=== PATIENT | male | born 2005 | race African-American/Black ===

== ENCOUNTER 2023-01-05 22:08 | Emergency (ER) | payer BC, SELFPAY ==
[2023-01-05 22:11] VITALS: BP 121/84; PULSE 80; RESP 16; TEMP 36.3; O2SAT 98; BMI 42.8
--- NOTE | 2023-01-05 23:10 | CRLHL7_ITS ---
For Patients: As a result of the Century Cures Act, medical imaging exams and procedure reports are released immediately into your electronic medical record. You may view this report before your referring provider. If you have questions, please contact your health care provider. INDICATION: Abdominal pain, hematemesis. TECHNIQUE: CT abdomen and pelvis acquired with 143 cc Isovue 370 IV contrast. COMPARISON: 02/03/2022. FINDINGS: Lower chest: Unremarkable. Liver: Unremarkable. Normal in size and attenuation. No suspicious masses. Gallbladder and bile ducts: Unremarkable. No stones or inflammation. No biliary ductal dilatation. Spleen: Unremarkable. Normal in size. No masses. Adrenal glands: Unremarkable. No nodules. Pancreas: Unremarkable. No mass or inflammation. Kidneys: Unremarkable. No suspicious masses, stones, or hydronephrosis. GI tract: Unremarkable. Normal in caliber. No sign of mass or inflammation. Normal appendix. Lymph nodes: No lymphadenopathy. Vasculature: Unremarkable. Omentum/Peritoneum/Abdominal Wall: Scarring in the right inguinal region. No free air or significant free fluid. Pelvis: Unremarkable. Bones: Unremarkable for age. IMPRESSION: No acute abdominal or pelvic abnormalities. Please note that all CT scans at this facility use dose modulation, iterative reconstruction, and/or weight-based dosing when appropriate to reduce radiation dose to as low as reasonably achievable. Dictated by Nickolas Rodrigues MD @ 01/05/2023 11:47:55 PM (Electronically Signed)
--- NOTE | 2023-01-05 23:11 | ED.GENADULT ---
HPI - General Adult General Date Seen: 01/05/23 Chief complaint: Nausea/Vomiting Stated complaint: Throwing up blood, bleeding nose, only sleeping Time Seen by Provider: 01/05/23 22:56 Source: patient Mode of arrival: ambulatory Limitations: no limitations History of Present Illness HPI narrative: Patient is a 17-year-old male who has been ill for about 24 hours with nausea and vomiting. He has been fatigued. No fevers or chills. He has had some dryness and irritation in his nose and it bleeds when he blows it. No severe nose bleed. He acknowledges that he likely has been swallowing some blood. He has had no diarrhea, melena, hematochezia. Mild epigastric abdominal pain. No urinary symptoms. Related Data Home Medications Medication Instructions Recorded Confirmed allopurinol 300 mg tablet 300 mg PO DAILY 01/05/23 01/05/23 amitriptyline 25 mg tablet 25 mg PO QPM 01/05/23 01/05/23 amitriptyline 50 mg tablet 50 mg PO QPM 01/05/23 01/05/23 dicyclomine 10 mg capsule 10 mg PO 3XD 01/05/23 01/05/23 pantoprazole 40 mg tablet,delayed 40 mg PO DAILY 01/05/23 01/05/23 release Previous Rx's Medication Instructions Recorded ondansetron 8 mg disintegrating 8 mg PO BID PRN nausea and 01/06/23 tablet vomiting #10 tabs Allergies Allergy/AdvReac Type Severity Reaction Status Date / Time No Known Drug Allergies Allergy Verified 01/05/23 22:19 Review of Systems Narrative: He has some chronic pain in his right hand that has been labeled complex regional pain syndrome. He takes allopurinol for unknown reason. Review of systems in all other areas is noted to be negative. Exam Narrative: Exam Narrative: Vitals noted. HEENT: Conjunctiva clear. Tympanic membranes are pearly white bilaterally. There is a little bit of dried blood in the left nostril. No active bleeding. Posterior pharynx is clear without erythema or exudate. Neck is supple without adenopathy, thyromegaly, carotid bruit. Lungs: Clear to auscultation in all quinn. No wheezes, rales, rhonchi. Heart: Regular rate and rhythm without murmur. Abdomen: Soft with some mild epigastric tenderness. No guarding rigidity or rebound. No palpable masses. Bowel sounds are normal. Extremities: No cyanosis or edema. Good distal pulses. Skin: No abnormalities noted of the exposed skin. Neurologic: Awake, alert, fully oriented. Neurologic exam is nonfocal. Const: Vital Signs, click to edit/add: Vital Signs - 24 hr 01/05/23 22:11 Temperature 97.3 F L Pulse Rate [Right Pulse Oximeter] 80 Respiratory Rate 16 Blood Pressure [Ri ght Upper Arm] 121/84 Pulse Oximetry 98 Oxygen Delivery Me thod Room Air Course Course Hospital Course: Patient seen and examined. IV is established he is given 1 L of normal saline. Labs and a CT of his abdomen and pelvis are ordered. He is given Zofran 4 mg IV. He denies a need for pain medication. Reevaluation(s) Reevaluation #1: His nausea has resolved. He feels a bit better after the IV fluids. CBC, BMP, LFTs, lipase are all normal. CT scan is unremarkable. Vital Signs Vital signs: Initial Vital Signs Temperature 97.3 F L 01/05/23 22:11 Temperature Source Temporal Artery Scan 01/05/23 22:11 Pulse Rate 80 01/05/23 22:11 Respiratory Rate 16 01/05/23 22:11 Blood Pressure 121/84 01/05/23 22:11 Blood Pressure Mean 96 01/05/23 22:11 Blood Pressure Position Sitting 01/05/23 22:11 Pulse Oximetry 98 01/05/23 22:11 Oxygen Delivery Method 01/05/23 22:11 Vital Signs Temperature 97.3 F L 01/05/23 22:11 Pulse Rate 80 01/05/23 22:11 Respiratory Rate 16 01/05/23 22:11 Blood Pressure 121/84 01/05/23 22:11 Pulse Oximetry 98 01/05/23 22:11 Oxygen Delivery Method 01/05/23 22:11 Temperature 97.3 F L 01/05/23 22:11 Pulse Rate 80 01/05/23 22:11 Respiratory Rate 16 01/05/23 22:11 Blood Pressure 121/84 01/05/23 22:11 Pulse Oximetry 98 01/05/23 22:11 Oxygen Delivery Method 01/05/23 22:11 Medical Decision Making MDM Narrative Medical decision making narrative: I suspect that he has viral gastroenteritis. I believe that the hematemesis is swallowed blood from his nose bleed. He is feeling better and is comfortable returning home. Lab Data Labs: Lab Results 01/05/23 01/05/23 Range/Units 23:30 23:30 WBC 9.83 (4.50-11.00) K/uL RBC 5.10 (4.30-5.90) m/uL Hgb 14.0 (13.5-17.5) gm/dL Hct 42.9 (37.0-53.0) % MCV 84 (80-100) fL MCH 28 (26-34) pg MCHC 33 (32-36) gm/dL RDW Coeff of Shital 13.1 (11.5-15.5) % Plt Count 204 (140-440) K/uL Neut % (Auto) 58.8 (42.0-72.0) % Lymph % (Auto) 24.1 (20-44) % Brewster % (Auto) 12.9 H (0.0-11.0) % Eos % (Auto) 2.6 (0.0-7.0) % Baso % (Auto) 0.5 (0.0-3.0) % Neut # (Auto) 5.77 (1.7-7.0) K/uL Lymph # (Auto) 2.37 (0.90-2.90) K/uL Brewster # (Auto) 1.30 H (0.00-0.90) K/UL Eos # (Auto) 0.26 (0.00-0.50) K/uL Baso # (Auto) 0.05 (0.00-0.30) K/uL Sodium 139 (135-149) mmol/L Potassium 4.1 (3.6-5.1) mmol/L Chloride 106 (96-114) mmol/L Carbon Dioxide 28 (20-32) mmol/L BUN 14 (5-24) mg/dL Creatinine 0.8 (0.6-1.2) mg/dL Estimated Creat Clear 148.52 Estimated GFR 131 ml/min Glucose 125 H (60-115) mg/dL Calcium 8.7 (8.7-10.8) mg/dL Total Bilirubin 0.4 (0.1-1.5) mg/dL Direct Bilirubin 0.3 (0.0-0.5) mg/dL AST 22 (12-35) U/L ALT 26 (4-50) U/L Alkaline Phosphatase 71 (65-260) U/L Total Protein 7.6 (6.0-8.3) g/dL Albumin 4.3 (3.3-5.0) g/dL Lipase 63 (23-300) U/L Discharge Plan Discharge Clinical Impression: Epistaxis, Gastroenteritis Patient Disposition: Home, Self-Care Condition: Improved Instructions: Nosebleed (ED), Gastroenteritis (ED) Additional Instructions: Push fluids, bland diet, Tylenol or Ibuprofen for pain. Zofran for nausea. Use Bacitracin intranasally to help with the nosebleeds. Follow up in the clinic if not improving over the next 2-3 days. Prescriptions: New ondansetron 8 mg tablet,disintegrating 8 mg PO BID PRN (Reason: nausea and vomiting) Qty: 10 0RF No Action amitriptyline 50 mg tablet 50 mg PO QPM amitriptyline 25 mg tablet 25 mg PO QPM pantoprazole 40 mg tablet,delayed release (DR/EC) 40 mg PO DAILY allopurinol 300 mg tablet 300 mg PO DAILY dicyclomine 10 mg capsule 10 mg PO 3XD Follow Up/Referrals: Elvis Hinkle MD [Primary Care Provider] - Stand Alone Forms: [employer] Info Instructions
[2023-01-05] MEDS: 0.9 % SODIUM CHLORIDE 1000 ml 1,000 ML IV (23:34)
[2023-01-05] MEDS: ONDANSETRON 2 MG/ML inj 4 MG IVP (23:34)
[2023-01-05 23:37] LABS: Basophils Absolute Auto 0.05 K/uL (0.00-0.30); Basophils Percent Auto 0.5 % (0.0-3.0); Eosinophils Absolute Auto 0.26 K/uL (0.00-0.50); Eosinophils Percent Auto 2.6 % (0.0-7.0); Hematocrit 42.9 % (37.0-53.0); Immature Granulocytes Abs Auto 0.11 K/uL (0.00-0.30); Immature Granulocytes Pct Auto 1.1 %; Lymphocytes Absolute Auto 2.37 K/uL (0.90-2.90); Lymphocytes Percent Auto 24.1 % (20-44); Mean Corpuscular HGB Conc 33 gm/dL (32-36); Mean Corpuscular Hemoglobin 28 pg (26-34); Mean Corpuscular Volume 84 fL (80-100); Monocytes Percent Auto 12.9 % (0.0-11.0); Neutrophils Absolute Auto 5.77 K/uL (1.7-7.0); Neutrophils Percent Auto 58.8 % (42.0-72.0); Platelet Count* 204 K/uL (140-440); RDW Coefficient of Variation % 13.1 % (11.5-15.5); White Blood Count* 9.83 K/uL (4.50-11.00)
[2023-01-05 23:39] LABS: Slide Review Reflex No
[2023-01-05 23:50] LABS: Albumin* 4.3 g/dL (3.3-5.0); Chloride* 106 mmol/L (96-114); Potassium* 4.1 mmol/L (3.6-5.1); Sodium* 139 mmol/L (135-149)
[2023-01-05 23:52] LABS: Creatinine* 0.8 mg/dL (0.6-1.2); Est. Creatinine Clearance* 148.52; Estimated Glomerular Filt Rate 131 ml/min
[2023-01-05 23:53] LABS: Alanine Aminotransferase* 26 U/L (4-50); Alkaline Phosphatase* 71 U/L (65-260); Aspartate Amino Transferase* 22 U/L (12-35); Bilirubin Direct* 0.3 mg/dL (0.0-0.5); Bilirubin Total* 0.4 mg/dL (0.1-1.5); Blood Urea Nitrogen* 14 mg/dL (5-24); Calcium* 8.7 mg/dL (8.7-10.8); Carbon Dioxide* 28 mmol/L (20-32); Glucose* 125 mg/dL (60-115); Lipase* 63 U/L (23-300); Total Protein* 7.6 g/dL (6.0-8.3)
[2023-01-06 00:17] VITALS: BP 113/72; PULSE 69; RESP 16; O2SAT 98
== END 2023-01-06 00:21 | disposition home or self-care (01) ==
PROVIDERS: Emergency Provider Family Medicine; PCP Family Medicine
DX: R04.0 Epistaxis (principal); K52.9 Noninfective gastroenteritis and colitis, unspecified
CPT/HCPCS: 36415; 74177; 80048; 80076; 83690; 85025; 96374; 99282; 99284; J2405; J7030; Q9967